=== PATIENT | female | born 1935 ===

== ENCOUNTER 2016-09-28 11:31 | Emergency (ER) | payer MEDICARE, MEDICAID ==
[~2016-09-28] VITALS: Ht 157.5 cm; Wt 118.2 kg
[~2016-09-28 11:31] MED LIST: ALBU8.5H2 IH; AMIO200T PO; CEFU500T PO; DULO30CA50 PO; ENAL5TAB PO; FLUC150T48 PO; FUR20 PO; GABA-502 PO; LORA1TAB PO; Lactobacillus Acidophilus PO; METO25TA99 PO; MULT-666 PO; NITR0.4T SL; POTA20TA7 PO; RIVA15TA PO; ROPI0.252 PO; TRAM50TA2 PO; [UNRECOGNIZED DRUG - OTHER] PO
[2016-09-28 11:35] VITALS: BP 160/68; PULSE 75; RESP 22; O2SAT 92
[2016-09-28 12:24] LABS: BASOPHILS % (AUTO) 0.2 % (0-3); EOSINOPHILS % (AUTO) 2.5 % (0-5); MONOCYTES % (AUTO) 10.6 % (4-12); Mean Corpuscular Hemoglobin 30.5 pg (27.0-35.0); Mean Corpuscular Volume 99.7 fL (81-100); Platelet Count 156 bil/L (150-400)
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
[2016-09-28] MEDS ORDERED: CLIN-77 PO (13:59)
[2016-09-28 14:36] VITALS: BP 152/67; PULSE 72; RESP 16; O2SAT 98
== END 2016-09-28 14:37 | disposition home or self-care (01) ==
LOC: SED 11:31
DX: L03.317 Cellulitis of buttock (principal); L08.9 Local infection of the skin and subcutaneous tissue, unspecified; I11.0 Hypertensive heart disease with heart failure; I50.9 Heart failure, unspecified; K21.9 Gastro-esophageal reflux disease without esophagitis; Z79.899 Other long term (current) drug therapy; Z88.0 Allergy status to penicillin; Z88.5 Allergy status to narcotic agent; Z88.8 Allergy status to other drugs, medicaments and biological substances

== ENCOUNTER 2016-11-10 11:31 | Emergency (ER) | payer MEDICARE, MEDICAID ==
[~2016-11-10] VITALS: Ht 154.9 cm; Wt 122.0 kg
[~2016-11-10 11:31] MED LIST changes: +CLIN-77 PO
[2016-11-10 11:43] VITALS: BP 164/68; PULSE 66; RESP 16; O2SAT 93
--- NOTE | 2016-11-10 14:40 | DRSVH ---
PROCEDURE: X-RAY PELVIS W/LAT HIP (RT) ([id number]) INDICATIONS: pain, no known trauma TECHNIQUE: AP pelvis with lateral view(s) of the right hip(s). COMPARISON: None. FINDINGS: Bones: No fractures or dislocations. Pelvic ring appears intact. No suspicious bony lesions. Mode rate to severe bilateral hip joint degenerative narrowing is present. Soft tissues: The visualized bowel gas pattern is normal. No suspicious soft tissue calcifications. IMPRESSION: [id number] bilateral osteoarthritic changes within the hips. Dictated by: Celi Gutierrez M.D. on 11/10/2016 at 13:38 Approved by: Celi Gutierrez M.D. on 11/10/2016 at 13:38
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
[2016-11-10] MEDS ORDERED: HYDROcodone-APAP 5-325 mg Tablet PO ONE (15:10)
[2016-11-10 16:16] LABS: Mean Corpuscular Hemoglobin 31.1 pg (27.0-35.0); Mean Corpuscular Volume 101.4 fL (81-100)
[2016-11-10] MEDS ORDERED: CEPH500T PO (16:59)
[2016-11-10 17:27] VITALS: BP 138/61; PULSE 60; RESP 18; O2SAT 95
== END 2016-11-10 17:28 | disposition home or self-care (01) ==
LOC: SED 11:31
DX: M25.551 Pain in right hip (principal); M79.3 Panniculitis, unspecified; I10 Essential (primary) hypertension; I50.9 Heart failure, unspecified; K21.9 Gastro-esophageal reflux disease without esophagitis; I48.91 Unspecified atrial fibrillation; E66.01 Morbid (severe) obesity due to excess calories; Z68.43 Body mass index [BMI] 50.0-59.9, adult; Z87.828 Personal history of other (healed) physical injury and trauma; Z96.652 Presence of left artificial knee joint; Z90.49 Acquired absence of other specified parts of digestive tract; Z79.51 Long term (current) use of inhaled steroids; Z88.0 Allergy status to penicillin; Z88.6 Allergy status to analgesic agent; Z88.8 Allergy status to other drugs, medicaments and biological substances

== ENCOUNTER 2016-11-16 19:12 | Emergency (ER) | payer MEDICARE, MEDICAID ==
[~2016-11-16 19:12] MED LIST changes: +CEPH500T PO
[2016-11-16 19:27] VITALS: BP 150/104; PULSE 77; RESP 21; O2SAT 95
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
[2016-11-16 20:18] VITALS: BP 145/54; PULSE 67; RESP 23; O2SAT 99
--- NOTE | 2016-11-16 20:39 | DRSVH ---
PROCEDURE: X-RAY LUMBAR SPINE, 2 OR 3 VIEW INDICATIONS: 81 year-old female with right hip and back pain after ground level fall. TECHNIQUE: 2 views of the lumbar spine were acquired. COMPARISON: [facility], MR, MR LUMBAR SPINE W&WO CON, 03/01/2016, 0:53. FINDINGS: Bones: 5 [id number] vertebrae are present. Grade 1 L4-L5 spondylolisthesis from facet joint dege neration is again noted. No acute vertebral body compression fractures. Nonacute mild L2 vertebral body compression fracture is again noted. No suspicious bony lesions. Soft tissues: Overlying bowel gas pattern is normal. No suspicious soft tissue calcifications. The re is patchy aortic atherosclerosis. IMPRESSION: 1. No acute bony injury to the lumbar spine. Nonacute L2 superior endplate compression fracture is un changed since 2016. 2. Grade one L4-L5 spondylolisthesis from facet joint arthropathy as before. Dictated by: Jay Sun M.D. on 11/16/2016 at 20:34 Approved by: Jay Sun M.D. on 11/16/2016 at 20:37
--- NOTE | 2016-11-16 20:40 | DRSVH ---
PROCEDURE: X-RAY PELVIS W/LAT HIP (RT) ([id number]) INDICATIONS: 81 year-old female with right hip pain after ground level fall. TECHNIQUE: AP pelvis with lateral view(s) of the right hip(s). COMPARISON: [facility], CR, XR PELVIS W LATERAL HIP RT, 11/10/2016, 14:24. [facility], CR, [id number] W PEL IF PERFORMED, 06/26/2016, 16:17. FINDINGS: Bones: No fractures or dislocations. Pelvic ring appears intact. No suspicious bony lesions. Soft tissues: The visualized bowel gas pattern is normal. No suspicious soft tissue calcifications. IMPRESSION: No acute bony injuries of the right hip. If there is persistent clinical concern for occu lt hip fracture, consider further evaluation with noncontrast bony pelvis CT or MRI. Dictated by: Jay Sun M.D. on 11/16/2016 at 20:38 Approved by: Jay Sun M.D. on 11/16/2016 at 20:39
[2016-11-16 21:32] VITALS: BP 160/62; PULSE 69; RESP 16; O2SAT 98
[2016-11-16] MEDS ORDERED: oxyCODONE-Acetamin 5-325 mg Tablet PO ONE (21:50)
[2016-11-16 21:59] VITALS: BP 155/57; PULSE 69; RESP 20; O2SAT 97
[2016-11-16 22:26] VITALS: BP 155/57; PULSE 69; RESP 20; O2SAT 97
== END 2016-11-16 22:27 | disposition home or self-care (01) ==
LOC: SED 19:12 → EDBD 19:12 → SED 22:27
DX: M54.5 Low back pain (principal); M25.551 Pain in right hip; I11.0 Hypertensive heart disease with heart failure; I50.9 Heart failure, unspecified; K21.9 Gastro-esophageal reflux disease without esophagitis; Z88.0 Allergy status to penicillin; Z88.5 Allergy status to narcotic agent; Z88.8 Allergy status to other drugs, medicaments and biological substances

== ENCOUNTER 2016-11-26 19:44 | Emergency (ER) | payer MEDICARE, MEDICAID ==
[~2016-11-26] VITALS: Ht 154.9 cm; Wt 120.5 kg
[2016-11-26 19:58] VITALS: BP 165/74; PULSE 60; RESP 18; O2SAT 97
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
[2016-11-26] MEDS ORDERED: Ondansetron 2 mg/mL 2 mL Inj IVPUSH ONE (21:55)
[2016-11-26 22:26] LABS: BASOPHILS % (AUTO) 0.2 % (0-3); MONOCYTES % (AUTO) 8.6 % (4-12); Mean Corpuscular Hemoglobin 31.8 pg (27.0-35.0); Mean Corpuscular Volume 101.2 fL (81-100); NEUTROPHILS % (AUTO) 75.7 % (40-74); Platelet Count 175 bil/L (150-400)
[2016-11-27] MEDS ORDERED: _HYDROcodone/APAP 5-325 mg Tablet PO PRN (00:15)
[2016-11-27 00:48] VITALS: BP 152/78; PULSE 62; RESP 20; O2SAT 98
--- NOTE | 2016-11-27 08:52 | DRSVH ---
PROCEDURE: CT CHEST, ABDOMEN AND PELVIS WITH CONTRAST ([id number]) INDICATIONS: fall on zarelto, right flank pain R lower rib pain TECHNIQUE: After the administration of intravenous contrast, 5 mm thick sections acquired from the lung apices t o the symphysis. 5 mm coronal and sagittal reformats were performed, with additional 7 mm MIP reform ats through the lungs. For radiation dose reduction, the following was used: automated exposure con trol, adjustment of mA and/or kV according to patient size. COMPARISON: [facility], CT, CT ANGIO CHEST PE, 07/16/2015, 14:01. FINDINGS: Image quality: Excellent. CHEST: Lungs and pleura: No acute airspace opacities. No pleural effusions or pneumothorax. Central and p eripheral airways appear patent and normal in caliber. Mediastinum: Heart size is normal. No pericardial effusion. No mediastinal or hilar adenopathy by size criteria. Thoracic aorta and central pulmonary arteries are normal in size. Esophagus is sera l in caliber. Small hiatal hernia noted. Chest wall: No axillary or supraclavicular adenopathy by size criteria. Minimally displaced lateral right ninth rib fracture noted. Thyroid gland contains a large, partially calcified, hypoattenuating nodule in the left lobe which extends into the superior mediastinum. Left thyroid nodule is not sligh tly changed compared to 07/16/2015.. ABDOMEN: Solid organs: Liver and spleen are normal in size and enhancement. Gallbladder is absent. Biliary system is non dilated. Pancreas enhances normally. No adrenal nodules. Kidneys demonstrate normal size and enhancement, without hydronephrosis. Peritoneum and bowel: Bowel loops demonstrate normal wall thickness and caliber. Colonic diverticulo sis without evidence of diverticulitis. Appendix is not definitely visualized, however no inflammator y changes or free fluid noted adjacent to the cecum. No free fluid or air. Nodes and vessels: No retroperitoneal or mesenteric adenopathy by size criteria. Aorta and inferior vena cava are normal in size. Scattered atherosclerotic calcifications involving the abdominal and p elvic vasculature. Miscellaneous: Fat-containing right lower quadrant ventral hernia noted. PELVIS: Genitourinary: Bladder wall thickness is normal. Uterus is absent. Miscellaneous: No inguinal hernias or adenopathy. Bones: No suspicious bony lesions. No vertebral body compression fractures. Spine degenerative disc disease and facet arthropathy. IMPRESSION: 1. Minimally displaced lateral right ninth rib fracture. 2. Large, approximately 3.6 x 5.8 x 2.9 cm left thyroid nodule. Recommend ultrasound guided fine need le aspiration. 3. Atherosclerosis including the coronary vasculature. 4. No free intraperitoneal fluid or air. 5. Colonic diverticulosis without evidence of diverticulitis. 6. Hiatal hernia. Dictated by: Darya Aguirre MD, PhD on 11/27/2016 at 8:40 Approved by: Darya Aguirre MD, PhD on 11/27/2016 at 8:50
== END 2016-11-27 00:49 | disposition home or self-care (01) ==
LOC: SED 19:44
DX: S22.31XA Fracture of one rib, right side, initial encounter for closed fracture (principal); W01.0XXA Fall on same level from slipping, tripping and stumbling without subsequent striking against object, initial encounter; Y93.89 Activity, other specified; Y92.89 Other specified places as the place of occurrence of the external cause; Y99.8 Other external cause status; E87.5 Hyperkalemia; I11.0 Hypertensive heart disease with heart failure; I50.9 Heart failure, unspecified; I48.91 Unspecified atrial fibrillation; K21.9 Gastro-esophageal reflux disease without esophagitis; F03.90 Unspecified dementia, unspecified severity, without behavioral disturbance, psychotic disturbance, mood disturbance, and anxiety; F32.9 Major depressive disorder, single episode, unspecified; Z95.1 Presence of aortocoronary bypass graft; Z88.0 Allergy status to penicillin; Z88.5 Allergy status to narcotic agent; Z88.8 Allergy status to other drugs, medicaments and biological substances
CPT/HCPCS: 36415; 71260; 74177; 80053; 85025; 96374; 99285; J2405; Q9967

== ENCOUNTER 2016-12-15 14:12 | Emergency (ER) | payer MEDICARE, MEDICAID ==
[~2016-12-15] VITALS: Ht 157.5 cm; Wt 122.0 kg
[~2016-12-15 14:12] MED LIST changes: +METO-386 PO; -METO25TA99 PO
[2016-12-15 14:15] VITALS: BP 172/79; PULSE 66; RESP 21; O2SAT 95
[2016-12-15 16:48] LABS: BASOPHILS % (AUTO) 0.2 % (0-3); EOSINOPHILS % (AUTO) 1.5 % (0-5); MONOCYTES % (AUTO) 11.4 % (4-12); Mean Corpuscular Hemoglobin 31.6 pg (27.0-35.0); Mean Corpuscular Volume 100.8 fL (81-100); NEUTROPHILS % (AUTO) 72.4 % (40-74); Platelet Count 162 bil/L (150-400)
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
[2016-12-15 17:24] VITALS: BP 152/76; PULSE 75; RESP 18; O2SAT 94
--- NOTE | 2016-12-15 19:16 | DRSVH ---
PROCEDURE: US ABDOMEN, LIMITED ([id number]) INDICATIONS: ? abscess TECHNIQUE: Real-time focused scanning was performed of the abdomen, with image documentation. COMPARISON: None. FINDINGS: Sonographic images along the anterior abdomen at the site of edema and erythema demonstrate d no underlying fluid collection. IMPRESSION: Lower abdominal edema and erythema suggestive of cellulitis. No underlying abscess. Dictated by: Celi Gutierrez M.D. on 12/15/2016 at 19:14 Approved by: Celi Gutierrez M.D. on 12/15/2016 at 19:15
[2016-12-15 20:19] VITALS: PULSE 71; RESP 16; O2SAT 95
== END 2016-12-15 20:21 | disposition home or self-care (01) ==
LOC: SED 14:12
DX: L08.89 Other specified local infections of the skin and subcutaneous tissue (principal); I11.0 Hypertensive heart disease with heart failure; I50.9 Heart failure, unspecified; K21.9 Gastro-esophageal reflux disease without esophagitis; Z90.710 Acquired absence of both cervix and uterus; Z88.0 Allergy status to penicillin; Z88.5 Allergy status to narcotic agent; Z88.8 Allergy status to other drugs, medicaments and biological substances